=== PATIENT | female | born 1970 | race Asian ===

== ENCOUNTER 2022-11-27 13:05 | Outpatient (CLI) | payer OTHER | END 2022-11-27 13:06 | disposition home or self-care (01) | LOC: SCSMRI 13:05 | PROVIDERS: ATTEND Family Medicine | DX: S46.911D Strain of unspecified muscle, fascia and tendon at shoulder and upper arm level, right arm, subsequent encounter (principal); M75.101 Unspecified rotator cuff tear or rupture of right shoulder, not specified as traumatic; M75.91 Shoulder lesion, unspecified, right shoulder ==